=== PATIENT | female | born 1940 | race Two or more races ===

== ENCOUNTER 2020-05-07 20:55 | Emergency (ER) | payer MEDICARE ==
[~2020-05-07] VITALS: Ht 152.4 cm; Wt 70.9 kg
[2020-05-07] MEDS ORDERED: ONDANSETRON 2MG/ML, 2ML ONE (21:19)
[2020-05-07] MEDS ORDERED: ONDANSETRON 2MG/ML, 2ML IVPush ONE (21:30)
--- NOTE | 2020-05-07 21:34 | NUR ---
PT RESTING IN BED WITH FAMILY AT PT SIDE, PT AWARE THAT URINE SAMPLE IS NEEDED. PT ON MONITOR WITH VSS
[2020-05-07] MEDS ORDERED: OMNIPAQUE 350 MG/ML, 100ML BOTTLE ONE (22:00)
[2020-05-07 22:12] LABS: BASOPHILS % (AUTO) 0 % (0-1); EOSINOPHILS % (AUTO) 1 % (1-7); LYMPHOCYTES % (AUTO) 26 % (22-44); MEAN CORPUSCULAR HEMOGLOBIN 29.7 pg (27.0-34.8); MEAN PLATELET VOLUME 7.6 fL (7.4-10.4); MONOCYTES % (AUTO) 7 % (2-9); NEUTROPHILS % (AUTO) 66 % (42-75); PLATELET COUNT 342 x10^3/uL (130-400); RED BLOOD COUNT 4.91 x10^6/uL (3.82-5.3)
[2020-05-07 22:15] LABS: MD NO
[2020-05-07 22:20] LABS: ALANINE AMINOTRANSFERASE 58 U/L (12-78); ALBUMIN 3.1 g/dL (3.4-5.0); ANION GAP 4 mmol/L (5-15); CALCIUM 9.6 mg/dL (8.5-10.1); CHLORIDE 105 mmol/L (98-107); CREATININE 0.85 mg/dL (0.55-1.02)
[2020-05-07 22:24] LABS: ALKALINE PHOSPHATASE 192 U/L (45-117); BILIRUBIN,TOTAL 0.4 mg/dL (0.2-1.0); TOTAL PROTEIN 7.7 g/dL (6.4-8.2); TROPONIN I < 0.015 ng/mL (0.000-0.045)
[2020-05-07 22:37] VITALS: BP 135/55
[2020-05-07 23:10] LABS: MICROSCOPIC AUTO
== END 2020-05-08 00:22 | disposition home or self-care (01) ==
LOC: ED 05-08 00:04
DX: U07.1 COVID-19 (principal); R10.32 Left lower quadrant pain; R11.2 Nausea with vomiting, unspecified; R19.7 Diarrhea, unspecified; R50.9 Fever, unspecified; I10 Essential (primary) hypertension; E11.9 Type 2 diabetes mellitus without complications; E78.5 Hyperlipidemia, unspecified; E78.00 Pure hypercholesterolemia, unspecified; Z87.891 Personal history of nicotine dependence; Z90.710 Acquired absence of both cervix and uterus
CPT/HCPCS: 36415; 74177; 80053; 81001; 83690; 84484; 85025; 87086; 87635; 93005; 96374; 99285; J2405; Q9967

== ENCOUNTER → 2021-01-30 | Outpatient (CLI) | payer MEDICARE | END | disposition home or self-care (01) | LOC: LAB 09:17 | PROVIDERS: ATTEND Nurse Practitioner Primary Care | DX: I10 Essential (primary) hypertension (principal); E11.39 Type 2 diabetes mellitus with other diabetic ophthalmic complication ==